=== PATIENT | male | born 1990 | race Caucasian/White ===

== ENCOUNTER → 2017-03-13 | Outpatient (CLI) | payer OTHER ==
[~2017-03-13] MED LIST: CONRAY-43 43% 50ML VIAL (Q9960) As Ordered ONE; PROHANCE 279.3MG/ML 5ML VIAL (A9576) As Ordered ONE
--- NOTE | 2017-03-13 10:39 | REP ---
MRI ARTHROGRAM LEFT SHOULDER: TECHNIQUE: Axial T2 fat sat, coronal oblique T1, T2 fat sat, post arthrogram axial T1 fat sat, proton density, coronal oblique T1 fat sat, T2 sat, sagittal oblique T2 fat sat, ABER T1 fat sat. The supraspinatus tendon demonstrates ill-defined high signal within its distal aspect compatible with tendinopathy/tendinitis with possible partial under surface tear distally. No other rotator cuff pathology is seen. Acromion is downward sloping and type 1. I do not see significant hypertrophic changes at the acromioclavicular joint. The biceps tendon is within the bicipital groove with no tenosynovitis. There is no Hill-Sachs deformity. No abnormal signal is seen in the deltoid muscle. Biceps labral complex is intact. There is no evidence of a labral tear. Well-defined oval cyst is seen in a subcortical location in the anterior aspect of the humeral head. This appears benign. Maximum diameter is 1.4 cm. There is no bone marrow edema or occult fracture. There is no joint effusion. There is no paralabral cyst. IMPRESSION: Supraspinatus tendinopathy/tendinitis with possible small partial tear along the under surface distally. Acromion is downward sloping and type 1. No evidence of a labral tear. Benign appearing subcortical cyst anterior humeral head. Signed by Edvin Dempsey MD 03/13/2017 11:48 A
--- NOTE | 2017-03-14 16:31 | REP ---
Procedure: Left shoulder arthrogram The procedure was performed under the direct supervision of Dr. Dempsey. History: Left shoulder pain The benefits and risks including but not limited to pain, infection, bleeding and anaphylaxis were explained to the patient and informed consent was obtained. Technique: The left glenohumeral joint space was localized using fluoroscopic guidance. The skin was prepped and draped in a sterile fashion. 1% lidocaine was used as a local anesthetic. Using fluoroscopic guidance a 22 gauge spinal needle was inserted and advanced into the joint. 0.5 ml of Conray 43 was injected to verify placement. 11 ml of a solution containing 20 ml of sterile saline and 0.15 ml of ProHance was injected into the joint. The needle was removed and the patient was taken to MRI for postprocedural imaging. The the patient tolerated the procedure well and there were no immediate complications. less than 6 seconds of fluoro time was utilized for this procedure. Reviewed by ANNA Franco 03/13/2017 03:12 PSigned by Edvin Dempsey MD 03/14/2017 04:22 P
== END ==
LOC: M RADPRO 07:26
DX: M25.512 Pain in left shoulder (principal); M65.812 Other synovitis and tenosynovitis, left shoulder; M75.82 Other shoulder lesions, left shoulder
CPT/HCPCS: 23350; 73223; 77002; A9576; Q9960